=== PATIENT | female | born 1985 | race Caucasian/White ===

== ENCOUNTER 2019-12-21 16:23 | Emergency (ER) | payer MEDICAID ==
[~2019-12-21] VITALS: Ht 172.7 cm; Wt 90.9 kg
[2019-12-21] MEDS ORDERED: TETanus/Pertussis (Acell)/Diphther VAC/PF (Tdap-Adult) 0.5ml syringe IMVAC ONE (17:10)
[2019-12-21] MEDS ORDERED: LIDOcaine 1% W/epiNEPHrine 1:200,000 10ml vial IJ ONE (17:10)
[2019-12-21 19:00] VITALS: BP 116/81
== END 2019-12-21 19:01 | disposition home or self-care (01) ==
LOC: ER 16:23
DX: S71.112A Laceration without foreign body, left thigh, initial encounter (principal); M25.561 Pain in right knee; Z98.890 Other specified postprocedural states; V89.2XXA Person injured in unspecified motor-vehicle accident, traffic, initial encounter; Y93.89 Activity, other specified; Y92.89 Other specified places as the place of occurrence of the external cause; Y99.8 Other external cause status
CPT/HCPCS: 12002; 90471; 90715; 99283; 99284